=== PATIENT | male | born 1945 ===

== ENCOUNTER 2018-03-25 07:08 | Day surgery (SDC) | payer MEDICARE ==
[2018-03-20 10:01] VITALS: BMI 31.0
[2018-03-25] MEDS ORDERED: KETAMINE HCL 50 MG/ML SYRINGE ONE (08:47)
[2018-03-25] MEDS ORDERED: Propofol 10 mg/ml Inj (20 ML) ONE (08:53)
[2018-03-25] MEDS ORDERED: Midazolam 2 MG/2 ML VIAL ONE (08:53)
[2018-03-25] MEDS ORDERED: Lactated Ringer's 500 ML IV SCH (09:00)
[2018-03-25] MEDS ORDERED: Lactated Ringer's 500 ML IV ONE ×2 (09:19)
[2018-03-25 10:28] VITALS: TEMP 97; O2SAT 98
[2018-03-25 11:14] VITALS: BP 118/66; PULSE 54; RESP 12
[2018-03-25] MEDS ORDERED: Lidocaine Hydrochloride 5 ML INJ ONE (11:25)
== END 2018-03-25 11:07 | disposition home or self-care (01) ==
LOC: C.ENDO 07:08
PROVIDERS: ATTEND Internal Medicine Gastroenterology
DX: K21.0 Gastro-esophageal reflux disease with esophagitis (principal); D12.3 Benign neoplasm of transverse colon; K64.8 Other hemorrhoids; K29.70 Gastritis, unspecified, without bleeding; K62.1 Rectal polyp
CPT/HCPCS: 43239; 45384; 82948; 88305; 88312; 88313; 88342; J2250; J2704; J7120